=== PATIENT | female | born 1970 | race African-American/Black ===

== ENCOUNTER 2017-08-29 16:41 | Emergency (ER) | payer SELFPAY ==
[~2017-08-29] VITALS: Ht 167.6 cm; Wt 109.0 kg
[2017-08-29] MEDS ORDERED: ENALAPRIL 5MG TABLET PO SCH (20:30)
[2017-08-29 21:02] LABS: CHLORIDE 106 mEq/L (98-107)
[2017-08-29 21:09] LABS: CARBON DIOXIDE 26 mEq/L (21-32)
[2017-08-29 21:16] LABS: HCG SCREEN NEGATIVE
[2017-08-29] MEDS ORDERED: ONDANSETRON 4MG ODT PO ONE (21:45)
[2017-08-29] MEDS ORDERED: HYDROCODONE/ACETAMINOPHEN 5/325MG TABLET PO ONE (21:45)
[2017-08-29 22:33] VITALS: BP 144/83
== END 2017-08-29 22:40 | disposition home or self-care (01) ==
LOC: ER 18:18
DX: R51 Headache (principal); I10 Essential (primary) hypertension; G89.29 Other chronic pain; M54.5 Low back pain; E66.9 Obesity, unspecified; Z68.38 Body mass index [BMI] 38.0-38.9, adult
CPT/HCPCS: 36415; 80048; 84703; 99284; Q0162